=== PATIENT | female | born 1975 | race African-American/Black ===

== ENCOUNTER 2023-10-26 08:09 | Emergency (ER) | payer MEDICAID ==
[~2023-10-26] VITALS: Ht 167.6 cm; Wt 60.0 kg
[2023-10-26 08:10] VITALS: O2SAT 100
[2023-10-26 09:01] LABS: BASOPHILS % 0.7 % (0.0-2.0); EOSINOPHILS % 1.9 % (0.0-5.0); HEMATOCRIT. 39.9 % (36.0-48.0); LYMPHOCYTES % 19.3 % (20.0-50.0); MEAN CORPUSCULAR HEMOGLOBIN 27.7 pg (28.0-32.0); MEAN CORPUSCULAR HGB CONC 32.5 g/dL (31.0-37.0); MEAN CORPUSCULAR VOLUME 85.3 fL (81.0-99.0); MEAN PLATELET VOLUME 8.6 fl (7.4-10.4); MONOCYTES % 7.2 % (2.0-8.0); NEUTROPHILS % 70.9 % (40.0-76.0); PLATELET 424 x1000/uL (130-400); RED BLOOD CELL COUNT 4.68 mill/uL (4.2-5.4); RED CELL DISTRIBUTION WIDTH 15.5 % (11.6-14.6)
[2023-10-26 09:03] LABS: CARBON DIOXIDE 18 mEq/L (21-32); CHLORIDE 112 mEq/L (98-107); POTASSIUM 4.1 mEq/L (3.5-5.1); SODIUM 140 mEq/L (136-145)
[2023-10-26 09:08] LABS: CREATININE 0.6 mg/dL (0.6-1.0); GLUCOSE 103 mg/dL (70-105)
[2023-10-26 09:09] LABS: UREA NITROGEN BLOOD 6 mg/dL (9-23)
[2023-10-26 09:10] LABS: ALANINE AMINOTRANSFERASE < 7 IU/L (10-49); ALBUMIN 4.3 g/dL (3.2-4.8); ASPARTATE AMINOTRANSFERASE 12 IU/L (<34)
[2023-10-26 09:11] LABS: BILIRUBIN TOTAL 0.4 mg/dL (0.1-1.0); PROTEIN TOTAL 6.8 g/dL (6.0-8.3)
[2023-10-26] MEDS: LEVETIRACETAM 500MG PREMIX 100 ML IV ONE ×2 (09:11)
[2023-10-26] MEDS: SODIUM CHLORIDE 0.9% 1000ML BAG (SEPSIS BOLUS) IV ONE (09:11)
[2023-10-26 09:16] LABS: HCG SCREEN NEGATIVE; PROTHROMBIN TIME 10.9 sec (9.6-11.0)
[2023-10-26 09:27] LABS: LACTIC ACID 7.5 mmol/L (0.4-2.0)
[2023-10-26 09:39] LABS: CALCIUM 10.1 mg/dL (8.7-10.4)
[2023-10-26 10:25] VITALS: BP 143/89; PULSE 70; RESP 16
[2023-10-27] MEDS ORDERED: LEVE10006 PO (23:08)
[2023-10-29] MEDS ORDERED: AMLO5TAB88 PO (09:06)
== END 2023-10-26 10:26 | disposition home or self-care (01) ==
LOC: ER 08:38 → CANBEDREQ 10-28 21:02
DX: G40.909 Epilepsy, unspecified, not intractable, without status epilepticus (principal); F19.90 Other psychoactive substance use, unspecified, uncomplicated; R07.9 Chest pain, unspecified
CPT/HCPCS: 80053; 84703; 83605; 85025; 85610; 87040; 36415; 84145; 71045; 93005; 96365; 99285; J1953; J7030; Z7610 ×2

== ENCOUNTER 2023-11-01 01:29 | Emergency (ER) | payer MEDICAID ==
[~2023-11-01] VITALS: Ht 167.6 cm; Wt 68.0 kg
[~2023-11-01 01:29] MED LIST: AMLO5TAB88 PO; LEVE10006 PO
[2023-11-01 01:31] VITALS: O2SAT 100
[2023-11-01 02:47] VITALS: TEMP 97.8
[2023-11-01] MEDS: LEVETIRACETAM 1000MG PREMIX 100 ML IV ONE (02:49)
[2023-11-01] MEDS: SODIUM CHLORIDE 0.9% 1,000 ML IV ONE (02:50)
[2023-11-01 03:05] LABS: BASOPHILS % 0.8 % (0.0-2.0); HEMATOCRIT. 37.9 % (36.0-48.0); HEMOGLOBIN. 12.9 g/dL (12.0-16.0); MEAN CORPUSCULAR HEMOGLOBIN 28.1 pg (28.0-32.0); MEAN CORPUSCULAR HGB CONC 33.9 g/dL (31.0-37.0); MEAN CORPUSCULAR VOLUME 82.9 fL (81.0-99.0); MEAN PLATELET VOLUME 9.5 fl (7.4-10.4); MONOCYTES % 10.9 % (2.0-8.0); NEUTROPHILS % 49.3 % (40.0-76.0); PLATELET 302 x1000/uL (130-400); RED BLOOD CELL COUNT 4.58 mill/uL (4.2-5.4); RED CELL DISTRIBUTION WIDTH 14.7 % (11.6-14.6); WHITE BLOOD COUNT 7.3 x1000/uL (4.5-11.0)
[2023-11-01 03:10] LABS: *AMPHETAMINES SCREEN URINE NEGATIVE (NEGATIVE); *BARBITURATES SCREEN URINE NEGATIVE (NEGATIVE); *BENZODIAZEPINES SCREEN URINE NEGATIVE (NEGATIVE)
[2023-11-01 03:11] LABS: *COCAINE SCREEN URINE NEGATIVE (NEGATIVE); CANNABINOID URINE SCREEN PRESUMPTIVE POSITIVE (NEGATIVE); ECSTASY MDMA SCREEN URINE NEGATIVE (NEGATIVE); METHADONE URINE SCREEN NEGATIVE (NEGATIVE); OPIATES URINE SCREEN NEGATIVE (NEGATIVE); PHENCYCLIDINE URINE SCREEN NEGATIVE (NEGATIVE)
[2023-11-01 03:53] LABS: HCG SCREEN NEGATIVE
[2023-11-01 03:59] LABS: CALCIUM 10.5 mg/dL (8.7-10.4); CARBON DIOXIDE 27 mEq/L (21-32); CHLORIDE 106 mEq/L (98-107); POTASSIUM 3.8 mEq/L (3.5-5.1); SODIUM 137 mEq/L (136-145)
[2023-11-01 04:04] LABS: CREATININE 0.6 mg/dL (0.6-1.0)
[2023-11-01 04:05] LABS: GLUCOSE 95 mg/dL (70-105); UREA NITROGEN BLOOD 9 mg/dL (9-23)
[2023-11-01 07:00] VITALS: BP 96/66; PULSE 74; RESP 18
== END 2023-11-01 07:00 | disposition home or self-care (01) ==
LOC: ER 01:29
DX: G40.909 Epilepsy, unspecified, not intractable, without status epilepticus (principal); F41.9 Anxiety disorder, unspecified; Z86.73 Personal history of transient ischemic attack (TIA), and cerebral infarction without residual deficits; Z98.890 Other specified postprocedural states
CPT/HCPCS: 80305; 80048; 84703; 83605; 85025; 36415; 71045; 70450; 96374; 99285; J1953; J7030

== ENCOUNTER 2024-06-28 06:00 | Emergency (ER) | payer MEDICAID, OTHER ==
[~2024-06-28] VITALS: Ht 180.3 cm; Wt 75.0 kg
[2024-06-28 06:07] VITALS: O2SAT 98
[2024-06-28] MEDS: LEVETIRACETAM 1000MG PREMIX 100 ML IV ONE (06:59)
[2024-06-28 07:15] LABS: BASOPHILS % 1.1 % (0.0-2.0); EOSINOPHILS % 2.2 % (0.0-5.0); HEMATOCRIT. 38.8 % (36.0-48.0); HEMOGLOBIN. 12.6 g/dL (12.0-16.0); LYMPHOCYTES % 34.5 % (20.0-50.0); MEAN CORPUSCULAR HEMOGLOBIN 27.6 pg (28.0-32.0); MEAN CORPUSCULAR HGB CONC 32.5 g/dL (31.0-37.0); MEAN CORPUSCULAR VOLUME 84.9 fL (81.0-99.0); MEAN PLATELET VOLUME 8.3 fl (7.4-10.4); MONOCYTES % 11.3 % (2.0-8.0); NEUTROPHILS % 50.9 % (40.0-76.0); PLATELET 353 x1000/uL (130-400); RED BLOOD CELL COUNT 4.57 mill/uL (4.2-5.4); RED CELL DISTRIBUTION WIDTH 14.6 % (11.6-14.6); WHITE BLOOD COUNT 6.7 x1000/uL (4.5-11.0)
[2024-06-28 07:24] LABS: CHLORIDE 112 mEq/L (98-107); POTASSIUM 4.4 mEq/L (3.5-5.1); SODIUM 142 mEq/L (136-145)
[2024-06-28 07:25] LABS: CALCIUM 9.7 mg/dL (8.7-10.4); CARBON DIOXIDE 25 mEq/L (21-32)
[2024-06-28 07:30] LABS: CREATININE 0.6 mg/dL (0.6-1.0); GLUCOSE 85 mg/dL (70-105); UREA NITROGEN BLOOD 10 mg/dL (9-23)
[2024-06-28 07:53] LABS: ETHANOL BLOOD < 10 mg/dL (<10)
[2024-06-28 09:45] LABS: CLARITY URINE TURBID (CLEAR); COLOR URINE YELLOW (YELLOW); GLUCOSE URINE NEGATIVE (NEGATIVE); PH URINE 7.5 (4.5-8.0); PROTEIN URINE TRACE (NEGATIVE); SPECIFIC GRAVITY URINE 1.018 (1.005-1.030)
[2024-06-28 09:46] LABS: KETONES URINE NEGATIVE (NEGATIVE); LEUKOCYTE ESTERASE URINE 2+ (NEGATIVE); NITRITE URINE NEGATIVE (NEGATIVE); OCCULT BLOOD URINE 2+ (NEGATIVE)
[2024-06-28 10:11] LABS: *AMPHETAMINES SCREEN URINE NEGATIVE (NEGATIVE); *BARBITURATES SCREEN URINE NEGATIVE (NEGATIVE); *BENZODIAZEPINES SCREEN URINE NEGATIVE (NEGATIVE); *COCAINE SCREEN URINE NEGATIVE (NEGATIVE); CANNABINOID URINE SCREEN PRESUMPTIVE POSITIVE (NEGATIVE); ECSTASY MDMA SCREEN URINE NEGATIVE (NEGATIVE); METHADONE URINE SCREEN NEGATIVE (NEGATIVE); OPIATES URINE SCREEN NEGATIVE (NEGATIVE); PHENCYCLIDINE URINE SCREEN NEGATIVE (NEGATIVE)
[2024-06-28 10:16] LABS: SQUAMOUS EPITHELIAL CELL URINE 1+ /lpf (RARE/1+)
[2024-06-28 10:17] LABS: BACTERIA URINE 4+
[2024-06-28 14:40] VITALS: BP 107/65; PULSE 62; RESP 15; TEMP 36.94740; O2SAT 100
== END 2024-06-28 15:15 | disposition short-term general hospital (02) ==
LOC: ER 06:00
DX: G40.909 Epilepsy, unspecified, not intractable, without status epilepticus (principal); F41.9 Anxiety disorder, unspecified; Z86.73 Personal history of transient ischemic attack (TIA), and cerebral infarction without residual deficits
CPT/HCPCS: 80305; 80048; 81003; 80320; 85025; 36415; 70450; 96365; 99285; J1953; G0480

== ENCOUNTER 2025-05-04 08:45 | Inpatient (IN) | payer OTHER ==
[~2025-05-04] VITALS: Ht 165.1 cm; Wt 68.0 kg
[~2025-05-04 08:45] MED LIST changes: +LEVE100023 PO; -LEVE10006 PO
[2025-05-04] MEDS: MIDAZOLAM HCL 2 MG/2 ML VIAL IM ONE ×2 (09:16→10:07)
[2025-05-04] MEDS: LEVETIRACETAM 500MG PREMIX 100 ML IV ONE ×2 (09:41→09:51)
[2025-05-04] MEDS: LACTATED RINGERS 1,000 ML IV SCH (09:45)
[2025-05-04 10:07] VITALS: O2SAT 97
[2025-05-04 10:47] LABS: BASOPHILS % 0.5 % (0.0-2.0); EOSINOPHILS % 0.2 % (0.0-5.0); HEMATOCRIT. 41.4 % (36.0-48.0); HEMOGLOBIN. 13.2 g/dL (12.0-16.0); LYMPHOCYTES % 12.0 % (20.0-50.0); MEAN PLATELET VOLUME 9.0 fl (7.4-10.4); MONOCYTES % 3.9 % (2.0-8.0); NEUTROPHILS % 83.4 % (40.0-76.0); PLATELET 275 x1000/uL (130-400); RED BLOOD CELL COUNT 4.79 mill/uL (4.2-5.4); RED CELL DISTRIBUTION WIDTH 14.1 % (11.6-14.6)
[2025-05-04 11:04] LABS: CREATININE 0.7 mg/dL (0.6-1.0)
[2025-05-04 11:05] LABS: UREA NITROGEN BLOOD 6 mg/dL (9-23)
[2025-05-04 11:06] LABS: ASPARTATE AMINOTRANSFERASE 12 IU/L (<34)
[2025-05-04 11:07] LABS: BILIRUBIN TOTAL 0.6 mg/dL (0.1-1.0); PROTEIN TOTAL 6.8 g/dL (6.0-8.3)
[2025-05-04 11:08] LABS: HCG SCREEN NEGATIVE
[2025-05-04] MEDS ORDERED: IPRATROPIUM/ALBUTEROL 0.5-3(2.5)MG/3ML NEB HHN PRN (11:15)
[2025-05-04] MEDS ORDERED: ACETAMINOPHEN 325MG TABLET PO PRN ×2 (11:15)
[2025-05-04] MEDS ORDERED: ONDANSETRON HCL 4MG/2ML INJ IV PRN (11:15)
[2025-05-04] MEDS ORDERED: DOCUSATE SODIUM 100MG CAPSULE PO PRN (11:15)
[2025-05-04] MEDS ORDERED: LORAZEPAM 2MG/ML UD SYRINGE IV PRN (11:15)
[2025-05-04] MEDS ORDERED: CLONIDINE 0.1MG TABLET PO PRN (11:15)
[2025-05-04 13:57] VITALS: BP 123/69; PULSE 59; RESP 16; TEMP 36.2512
[2025-05-04] MEDS: SODIUM CHLORIDE 0.9% 1,000 ML IV SCH (15:52)
[2025-05-04 16:00] VITALS: BP 139/58; PULSE 57; RESP 15; TEMP 36.3; O2SAT 100
[2025-05-04 20:33] VITALS: BP 110/66; PULSE 76; RESP 20; TEMP 36.8; O2SAT 100
[2025-05-04] MEDS: LEVETIRACETAM 500MG/5ML CUP PO SCH (21:36)
[2025-05-05 04:00] VITALS: BP 128/77; PULSE 78; RESP 18; TEMP 36.8; O2SAT 99
[2025-05-05 08:00] VITALS: BP 116/72; PULSE 68; RESP 17; TEMP 36.3; O2SAT 100
[2025-05-05] MEDS: AMLODIPINE 5MG TABLET PO SCH (09:00)
[2025-05-05] MEDS: ENOXAPARIN 40MG/0.4ML SYR SUBCUT SCH (09:00)
[2025-05-05 09:11] LABS: BASOPHILS % 0.6 % (0.0-2.0); EOSINOPHILS % 0.7 % (0.0-5.0); HEMATOCRIT. 37.2 % (36.0-48.0); HEMOGLOBIN. 11.9 g/dL (12.0-16.0); LYMPHOCYTES % 29.9 % (20.0-50.0); MEAN PLATELET VOLUME 8.3 fl (7.4-10.4); MONOCYTES % 8.8 % (2.0-8.0); NEUTROPHILS % 60.0 % (40.0-76.0); PLATELET 305 x1000/uL (130-400); RED BLOOD CELL COUNT 4.31 mill/uL (4.2-5.4); RED CELL DISTRIBUTION WIDTH 14.2 % (11.6-14.6)
[2025-05-05 09:31] LABS: CREATININE 0.7 mg/dL (0.6-1.0); UREA NITROGEN BLOOD 8 mg/dL (9-23)
[2025-05-05 11:55] VITALS: BP 128/66; PULSE 56; RESP 16; TEMP 36.5; O2SAT 100
[2025-05-05] MEDS ORDERED: LEVE100023 PO (13:38)
[2025-05-05 16:00] VITALS: BP 119/72; PULSE 60; RESP 16; TEMP 36.4; O2SAT 99
[2025-05-05 18:20] VITALS: BP 119/74; PULSE 56; RESP 17; TEMP 97.6
[2025-05-05 20:00] VITALS: BP 137/84; PULSE 74; RESP 16; TEMP 37; O2SAT 100
== END 2025-05-05 21:35 | disposition home or self-care (01) | DRG 53 ==
LOC: ER 08:45 → 7WST 10:06 → EDBEDREQ 11:20 → EDBEDREQTM 11:20 → ENRESERV 11:53
PROVIDERS: ADMIT Internal Medicine; ATTEND Internal Medicine
DX: G40.409 Other generalized epilepsy and epileptic syndromes, not intractable, without status epilepticus (principal); G93.89 Other specified disorders of brain; F41.9 Anxiety disorder, unspecified; Z86.73 Personal history of transient ischemic attack (TIA), and cerebral infarction without residual deficits; Z79.899 Other long term (current) drug therapy
CPT/HCPCS: 36415; 80048; 80053; 84703; 85025; 99285; J1650; J1953; J2250